=== PATIENT | female | born 1985 | race African-American/Black ===

== ENCOUNTER 2016-10-18 10:27 | Emergency (ER) | payer OTHER ==
[~2016-10-18] VITALS: Ht 170.2 cm; Wt 102.5 kg
[~2016-10-18 10:27] MED LIST: DOCU-144 PO; FER325 PO; RTPRO5
[2016-10-18 10:32] VITALS: Ht 170.2 cm; Wt 102.5 kg
[2016-10-18 11:51] LABS: ADD SCAN DIFF NO
[2016-10-18 11:52] LABS: ABNORMAL IP MESSAGE 1; HEMATOCRIT 19.1 % (37.0-47.0); MEAN CORPUSCULAR HEMOGLOBIN 18.5 pg (29.0-33.0); MEAN CORPUSCULAR HGB CONC 26.7 g/dl (32.0-37.0); MEAN CORPUSCULAR VOLUME 69.2 fl (82.0-101.0); MEAN PLATELET VOLUME 9.4 fl (7.4-10.4); PLATELET COUNT 529 10^3/UL (140-415); RED BLOOD COUNT 2.76 10^6/ul (4.20-5.40); RED CELL DISTRIBUTION WIDTH 24.3 % (11.5-14.5)
--- NOTE | 2016-10-18 12:01 | ERD ---
ER Documentation Chief Complaint Date/Time DATE: 10/18/16 TIME: 11:57 Chief Complaint Sent from for eval abnormal labs HPI This a 31-year-old female who presents the emergency department today for further evaluation after being sent by her primary care doctor for blood transfusion. States that she was called by her primary care doctor and had blood work a couple of days ago. Patient states that she has had one transfusion in the past approximately 1 year ago. Patient states that she does have heavy menstrual cycles and her menses are irregular. States that she saw an PROFILING MACHINE OPERATOR last time she was admitted to the hospital here and was told that she should have a hysterectomy. Patient states she did not want to do this however she did indicate that she has had her tubes tied. States she sometimes feels dizziness. States she is currently on her menstrual cycle. Denies any hematemesis, melanotic stools. ROS All systems reviewed and are negative except as per history of present illness. Medications Home Meds Discontinued Reported Medications Albuterol Sulfate* (Proventil* Neb) 0.5 Ml Nebu 12/02/09 Discontinued Scripts Docusate Sodium* (Colace*) 100 Mg Capsule, 100 MG PO BID, #60 CAP Prov:ABE CORBETT M. 11/06/15 Ferrous Sulfate* (Ferrous Sulfate*) 325 Mg Tabec, 325 MG PO TID, #90 TAB Prov:ABE CORBETT. 11/06/15 Allergies Allergies: Coded Allergies: No Known Drug Allergy (Verified Allergy, Unknown, 10/18/16) PMhx/Soc History of Surgery: Yes (6 C-SECTIONS, Tubal ligation ) Anesthesia Reaction: No Hx Neurological Disorder: No Hx Respiratory Disorders: Yes (ASTHMA) Hx Cardiac Disorders: No Hx Psychiatric Problems: No Hx Miscellaneous Medical Probl: Yes (anemia) Hx Alcohol Use: No Hx Substance Use: No Hx Tobacco Use: No Smoking Status: Never smoker Physical Exam Vitals Vital Signs Date Time Temp Pulse Resp B/P Pulse Ox O2 Delivery O2 Flow Rate FiO2 10/18/16 10:32 98.4 76 20 121/58 100 Physical Exam Const: Obese, no acute distress Head: Atraumatic Eyes: Normal Conjunctiva ENT: Normal External Ears, Nose and Mouth. Neck: Full range of motion..~ No meningismus. Resp: Clear to auscultation bilaterally Cardio: Regular rate and rhythm, no murmurs Abd: Soft, non tender, non distended. Normal bowel sounds Skin: No petechiae or rashes Back: No midline or flank tenderness Ext: No cyanosis, or edema Neur: Awake and alert Psych: Normal Mood and Affect Result Diagram: 10/18/16 1130 10/18/16 1130 Results 24 hrs Laboratory Tests Test 10/18/16 11:30 10/18/16 13:21 White Blood Count 4.810^3/ul Red Blood Count 2.7610^6/ul Hemoglobin 5.1g/dl Hematocrit 19.1% Mean Corpuscular Volume 69.2fl Mean Corpuscular Hemoglobin 18.5pg Mean Corpuscular Hemoglobin Concent 26.7g/dl Red Cell Distribution Width 24.3% Platelet Count 97340^3/UL Mean Platelet Volume 9.4fl Neutrophils % 71.0% Lymphocytes % 25.0% Monocytes % 3.0% Eosinophils % 1.0% Neutrophils # 3.410^3/ul Lymphocytes # 1.210^3/ul Monocytes # 0.110^3/ul Eosinophils # 0.010^3/ul Sodium Level 141mmol/L Potassium Level 3.9mmol/L Chloride Level 105mmol/L Carbon Dioxide Level 26mmol/L Anion Gap 14 Blood Urea Nitrogen 12mg/dl Creatinine 0.62mg/dl Glucose Level 104mg/dl Calcium Level 9.7mg/dl Total Bilirubin 0.1mg/dl Direct Bilirubin 0.00mg/dl Indirect Bilirubin 0.1mg/dl Aspartate Amino Transf (AST/SGOT) 16IU/L Alanine Aminotransferase (ALT/SGPT) 25IU/L Alkaline Phosphatase 62IU/L Total Protein 8.1g/dl Albumin 4.8g/dl Globulin 3.30g/dl Albumin/Globulin Ratio 1.45 Bedside Urine pH (LAB) 6.0 Bedside Urine Protein (LAB) 1+ Bedside Urine Glucose (UA) Negative Bedside Urine Ketones (LAB) Negative Bedside Urine Blood 3+ Bedside Urine Nitrite (LAB) Negative Bedside Urine Leukocyte Esterase (L Negative Current Medications Medications (Trade) Dose Ordered Sig/Allie Route PRN Reason Start Time Stop Time Status Last Admin Dose Admin Sodium Chloride (NS) 250 ml @ 0 mls/hr Q0M ONCE IV 10/18/16 12:29 10/18/16 12:31 DC Ondansetron HCl (Zofran Inj) 4 mg BRIDGE ORDER PRN IV NAUSEA AND/OR VOMITING 10/18/16 13:00 10/19/16 12:59 Acetaminophen (Tylenol Tab) 650 mg ER BRIDGE PRN PO MILD PAIN/FEVER 10/18/16 13:00 10/19/16 12:59 IV Flush (NS 3 ml) 3 ml PER PROTOCOL IV 10/18/16 14:00 Acetaminophen (Tylenol Tab) 650 mg Q6H PRN PO PAIN LEVEL 1-3 OR FEVER 10/18/16 14:00 Acetaminophen/ Hydrocodone Bitart ([place] (5/325)) 1 tab Q6H PRN PO MODERATE PAIN LEVEL 4-6 10/18/16 14:00 DIAGNOSTIC IMAGING REPORT Patient: WHITNEY ZARATE : 1985 Age: 31 Sex: F MR #: [id number] DOS: 10/18/16 0000 Ordering MD: ATUL NAVA PA-C Location: E/R Room/Bed: PROCEDURE: US Pelvis CLINICAL INDICATION: Vaginal bleeding TECHNIQUE: Sonographic evaluation of the pelvis was performed utilizing both transabdominal and transvaginal technique. Curved array transabdominal transducer technique as well as a high frequency endovaginal probe was utilized. Images were reviewed on the high-resolution PACS workstation. COMPARISON: Pelvic ultrasound dated 11/05/2015 FINDINGS: The uterus is normal in size, echogenicity, and morphology measuring 10.9 x 6.0 x 4.5 cm in dimension. The uterus is anteverted in normal position. The endometrium is normal for a menstrual age female measuring 8.1 mm in diameter. The normal trilaminar stripe of the endometrium is preserved. The right ovary measures 4.7 x 2.5 x 3.0 cm in dimension. The left ovary measures 3.8 x 2.0 x 2.3 cm in dimension. The ovaries are symmetric in size, echogenicity, and morphology. Normal Doppler flow is demonstrated to both ovaries. There are no adnexal masses. There is no significant free fluid in the pelvis. IMPRESSION: Unremarkable ultrasound of the pelvis. RPTAT: .Nemo Thurman MD, Date Time Electronically viewed and signed by .Nemo Thurman MD, on 10/18/2016 14 :05 .G/ CC: ATUL NAVA PA-C Procedures/MDM This a 31-year-old female who presents to the emergency department today for further evaluation after being sent by her primary care doctor, Dr Deo Sarah, for a blood transfusion. Patient has had one in the past. Patient endorsed having irregular menstrual cycles and sometimes long and heavy prolonged cycles. I did repeat laboratory work today given that patient does not have any paperwork with her. Laboratory workup shows a hemoglobin of 5.1. Her platelets are elevated. There is no elevated white blood cell count. UA is negative for infection. 3+ blood is present. Patient currently on her menstrual cycle peer test is negative Ultrasound was unremarkable. The normal try laminar stripe of the endometrium is preserved. There is no significant free fluid in the pelvis. There are no adnexal masses. There is normal Doppler flow to both ovaries. Patient symptoms at this time is consistent with anemia that appears to be microcytic and possibly due to dysfunctional uterine bleeding. A call to Dr Ngo was placed. Any further orders placed will be placed by Dr. Gonzáles, or the admitting physician. Departure Diagnosis: Primary Impression: Anemia Anemia type: unspecified type Qualified Code: D64.9 - Anemia, unspecified type Condition: Fair ATUL NAVA PA-C Oct 18, 2016 12:01
[2016-10-18 12:11] LABS: ALBUMIN 4.8 g/dl (3.3-4.9); ALBUMIN/GLOBULIN RATIO 1.45; BILIRUBIN,INDIRECT 0.1 mg/dl (0-1.1); BILIRUBIN,TOTAL 0.1 mg/dl (0.2-1.3); CALCIUM 9.7 mg/dl (8.4-10.2); CREATININE 0.62 mg/dl (0.44-1.00); POTASSIUM 3.9 mmol/L (3.5-5.1); TOTAL PROTEIN 8.1 g/dl (6.1-8.1)
[2016-10-18 12:18] LABS: HEMOGLOBIN 5.1 g/dl (12.0-16.0)
[2016-10-18] MEDS ORDERED: SOD CHLORIDE 0.9% 250 ML IV ONE (12:29)
--- NOTE | 2016-10-18 12:38 | QN ---
Documentation Comment I have seen and evaluated the patient along with the PA and/or LAWN AND GARDEN TECHNICIAN provider. I agree with the evaluation and plan of care. Please see their documentation for full ER course and evaluation. In short: Patient sent to the emergency room for symptomatic anemia On exam: General: Well developed, well nourished, no acute distress, pallor noted Head: Normocephalic, atraumatic Eyes: Pupils equally reactive, EOM intact ENT: Moist mucous membranes Neck: Supple, no lymphadenopathy Respiratory: Lungs clear bilaterally, no distress Cardiovascular: RRR, no murmurs, rubs, or gallops Abdominal: Soft, non-tender, non-distended, no peritoneal signs : Deferred MSK: No edema, no unilateral swelling, 5/5 strength Neurologic: Alert and oriented, moving all extremities, normal speech, no focal weakness, no cerebellar signs Skin: No rash Psych: Normal mood Assessment and plan: Patient is a hemoglobin of 5.1. 2 units packed red blood cells ordered. Patient has a history of menorrhagia which is the likely etiology. Based on the patient's clinical presentation, physical exam and laboratory testing, I believe that a blood transfusion would be most appropriate. I believe the benefits outweigh the risks. I had a prolonged conversation regarding informed consent of a blood transfusion with the patient and/or family. We discussed the risks, benefits, alternatives of blood transfusion. There was verbalized understanding. A documented consent was signed and placed in the patient's chart. Patient will be admitted for further workup and treatment of symptomatically anemia Accepting care team and consultations: I discussed the current laboratory data, diagnostic imaging and emergency care provided. Admitting team: Dr. Rousseau Admitting team indication: Insurance directed ROM BHANDARI MD Oct 18, 2016 12:38
[2016-10-18] MEDS ORDERED: ACETAMINOPHEN 325 MG TAB PO PRN ×2 (13:00→14:00)
[2016-10-18] MEDS ORDERED: ONDANSETRON 4 MG INJ IV PRN (13:00)
[2016-10-18 13:16] LABS: URINE BLOOD (Dip) POC 3+ (NEGATIVE)
[2016-10-18 13:49] LABS: LYMPHOCYTES # 1.2 10^3/ul (0.8-2.9); MONOCYTE # 0.1 10^3/ul (0.3-0.9); NEUTROPHIL # 3.4 10^3/ul (1.6-7.5)
--- NOTE | 2016-10-18 13:56 | HP ---
Date/Time of Note Date/Time of Note DATE: 10/18/16 TIME: 13:56 Assessment/Plan VTE Prophylaxis VTE Prophylaxis Intervention: SCD's Assessment/Plan Assessment/Plan 31 yo F presents with anemia 2/2 abnormal uterine bleeding PLAN transfuse pRBCs dent remover eval check TSH discharge home when cleared by dent remover HPI/ROS Admit Date/Time Admit Date/Time Hx of Present Illness 31 yo F with pmhx asthma, dysfunctional uterine bleeding presents with anemia. Pt admitted for DUB last year and has not yet followed up with dent remover. Denies any SOB but reports chronic fatigue. Had "routine" blood work done earlier this week with PCP. Hgb found to be 5 and pt advised to present to the ED for further eval. Pt affirms same hx she gave last year-->that her menstrual periods last 10 days and she goes through on average 24 pads per cycle. PMH/Family/Social Social History lives in the community, mom to 6 children Smoking Status: Never smoker Exam/Review of Systems Vital Signs Vitals Vital Signs Date Time Temp Pulse Resp B/P Pulse Ox O2 Delivery O2 Flow Rate FiO2 10/18/16 10:32 98.4 76 20 121/58 100 Exam Exam nad, laying in bed, pleasant EOMI MMM no mrg lungs clear abd soft, obese no le edema no rashes pevic US results unremarkable hgb 5s Labs Result Diagram: 10/18/16 1130 10/18/16 1130 HUSSAIN DE LA ROSA MD Oct 18, 2016 13:56
[2016-10-18] MEDS ORDERED: HYDROCODONE/APAP (5/325) TAB PO PRN (14:00)
[2016-10-18] MEDS ORDERED: NACL 0.9% 3 ML SYG IV SCH (14:00)
--- NOTE | 2016-10-18 14:05 | RADRPT ---
PROCEDURE: US Pelvis CLINICAL INDICATION: Vaginal bleeding TECHNIQUE: Sonographic evaluation of the pelvis was performed utilizing both transabdominal and tr ansvaginal technique. Curved array transabdominal transducer technique as well as a high frequency endovaginal probe was utilized. Images were reviewed on the high-resolution PACS workstation. COMPARISON: Pelvic ultrasound dated 11/05/2015 FINDINGS: The uterus is normal in size, echogenicity, and morphology measuring 10.9 x 6.0 x 4.5 cm in dimensio n. The uterus is anteverted in normal position. The endometrium is normal for a menstrual age fem jimmy measuring 8.1 mm in diameter. The normal trilaminar stripe of the endometrium is preserved. The right ovary measures 4.7 x 2.5 x 3.0 cm in dimension. The left ovary measures 3.8 x 2.0 x 2.3 c m in dimension. The ovaries are symmetric in size, echogenicity, and morphology. Normal Doppler fl ow is demonstrated to both ovaries. There are no adnexal masses. There is no significant free flui d in the pelvis. IMPRESSION: Unremarkable ultrasound of the pelvis. RPTAT: HH .Nemo Thurman MD, Date Time Electronically viewed and signed by .Nemo Thurman MD, MD on 10/18/2016 14:05 .Ludy/
--- NOTE | 2016-10-18 14:12 | QN ---
Documentation Comment OBGYN pt with H/o of chronic menorrhagia vss exam wnl a/p chronic menorrhagia with anemia transfuse PRBC provera 10 BID instructed pt will need WINTER with OBGYN on DC home and likely would benefit from EMB/endometrial ablation will follow DANIELLE MELENDEZ MD Oct 18, 2016 14:12
[2016-10-18] MEDS ORDERED: MEDROXYPROGESTERONE 10 MG TAB PO SCH (21:00)
[2016-10-18 21:01] VITALS: BP 118/82; PULSE 78; RESP 18; TEMP 98.7
[2016-10-19 08:56] LABS: WHITE BLOOD COUNT 4.8 10^3/ul (4.8-10.8)
--- NOTE | 2016-10-19 09:02 | DS ---
Date/Time of Note Date/Time of Note DATE: 10/19/16 TIME: 09:01 Discharge Summary Admission/Discharge Info Admit Date/Time Discharge Date/Time Patient Condition: Guarded Consults bordereau clerk Hx of Present Illness 31 yo F with pmhx asthma, dysfunctional uterine bleeding presents with anemia. Pt admitted for DUB last year and has not yet followed up with bordereau clerk. Denies any SOB but reports chronic fatigue. Had "routine" blood work done earlier this week with PCP. Hgb found to be 5 and pt advised to present to the ED for further eval. Pt affirms same hx she gave last year-->that her menstrual periods last 10 days and she goes through on average 24 pads per cycle. Hospital Course Pt appeared to have left the ER at 9pm after her blood transfusion. Paraeducator was not informed of patient's departure. No documentation from the ER regarding the nature of this discharge. Home Meds Discontinued Reported Medications Albuterol Sulfate* (Proventil* Neb) 0.5 Ml Nebu 12/02/09 Discontinued Scripts Docusate Sodium* (Colace*) 100 Mg Capsule, 100 MG PO BID, #60 CAP Prov:ABE CORBETT 11/06/15 Ferrous Sulfate* (Ferrous Sulfate*) 325 Mg Tabec, 325 MG PO TID, #90 TAB Prov:ABE CORBETT 11/06/15 Primary Care Provider Pending Labs Laboratory Tests Test 10/18/16 11:30 10/18/16 11:35 10/18/16 13:21 White Blood Count 4.810^3/ul (4.8-10.8) Red Blood Count 2.7610^6/ul (4.20-5.40) Hemoglobin 5.1g/dl (12.0-16.0) Hematocrit 19.1% (37.0-47.0) Mean Corpuscular Volume 69.2fl (82.0-101.0) Mean Corpuscular Hemoglobin 18.5pg (29.0-33.0) Mean Corpuscular Hemoglobin Concent 26.7g/dl (32.0-37.0) Red Cell Distribution Width 24.3% (11.5-14.5) Platelet Count 86010^3/UL (140-415) Mean Platelet Volume 9.4fl (7.4-10.4) Neutrophils % 71.0% (39.0-77.0) Lymphocytes % 25.0% (15.0-51.0) Monocytes % 3.0% (0.0-11.0) Eosinophils % 1.0% (0.0-7.0) Neutrophils # 3.410^3/ul (1.6-7.5) Lymphocytes # 1.210^3/ul (0.8-2.9) Monocytes # 0.110^3/ul (0.3-0.9) Eosinophils # 0.010^3/ul (0.0-0.5) Sodium Level 141mmol/L (135-144) Potassium Level 3.9mmol/L (3.5-5.1) Chloride Level 105mmol/L (97-110) Carbon Dioxide Level 26mmol/L (21-31) Anion Gap 14 (8-16) Blood Urea Nitrogen 12mg/dl (7-20) Creatinine 0.62mg/dl (0.44-1.00) Glucose Level 104mg/dl (70-220) Calcium Level 9.7mg/dl (8.4-10.2) Total Bilirubin 0.1mg/dl (0.2-1.3) Direct Bilirubin 0.00mg/dl (0.00-0.20) Indirect Bilirubin 0.1mg/dl (0-1.1) Aspartate Amino Transf (AST/SGOT) 16IU/L (15-46) Alanine Aminotransferase (ALT/SGPT) 25IU/L (13-69) Alkaline Phosphatase 62IU/L (42-121) Total Protein 8.1g/dl (6.1-8.1) Albumin 4.8g/dl (3.3-4.9) Globulin 3.30g/dl (1.3-3.2) Albumin/Globulin Ratio 1.45 Thyroid Stimulating Hormone (TSH) 1.040MIU/L (0.465-4.680) Bedside Urine pH (LAB) 6.0 (5.0-8.5) Bedside Urine Protein (LAB) 1+ (NEGATIVE) Bedside Urine Glucose (UA) Negative (NEGATIVE) Bedside Urine Ketones (LAB) Negative (NEGATIVE) Bedside Urine Blood 3+ (NEGATIVE) Bedside Urine Nitrite (LAB) Negative (NEGATIVE) Bedside Urine Leukocyte Esterase (L Negative (NEGATIVE) STOLAR,HUSSAIN MD Oct 19, 2016 09:02
== END 2016-10-18 21:19 | disposition home or self-care (01) ==
LOC: FTE 10:27 → E/R 21:19
DX: D64.9 Anemia, unspecified (principal); J45.909 Unspecified asthma, uncomplicated
CPT/HCPCS: 36430; 76856; 80053; 81003; 84443; 85025; 86850; 86900; 86901; 86920; J7040; P9016

== ENCOUNTER 2017-02-16 18:29 | Emergency (ER) | payer OTHER ==
[~2017-02-16] VITALS: Ht 170.2 cm; Wt 102.5 kg
[2017-02-16 18:32] VITALS: Ht 170.2 cm; Wt 102.5 kg
[2017-02-16] MEDS ORDERED: KETOROLAC 15 MG INJ IM STA (19:08)
--- NOTE | 2017-02-16 19:08 | ERD ---
ER Documentation Chief Complaint Chief Complaint left shoulder pain x 2 days, denies in jury HPI This 31-year-old female presents to emergency department for evaluation of acute onset of left shoulder pain left scapular pain. denies injury, pt reports that she was sitting watching TV when pain started pain is 8/10 described as sharp and intermitted ROS All systems reviewed and are negative except as per history of present illness. Medications Home Meds Active Scripts Naproxen* (Naprosyn*) 500 Mg Tablet, 500 MG PO BID Y for PAIN AND/OR INFLAMMATION, #20 TAB Prov:TAMAR LERMA 02/16/17 Allergies Allergies: Coded Allergies: No Known Drug Allergy (Verified Allergy, Unknown, 10/18/16) PMhx/Soc History of Surgery: Yes (6 C-SECTIONS, Tubal ligation ) Anesthesia Reaction: No Hx Neurological Disorder: No Hx Respiratory Disorders: Yes (ASTHMA) Hx Cardiac Disorders: No Hx Psychiatric Problems: No Hx Miscellaneous Medical Probl: Yes (anemia) Hx Alcohol Use: No Hx Substance Use: No Hx Tobacco Use: No Physical Exam Vitals Vital Signs Date Time Temp Pulse Resp B/P Pulse Ox O2 Delivery O2 Flow Rate FiO2 02/16/17 18:32 99.3 77 20 137/62 100 Vitals stable, triage notes reviewed Physical Exam Const: Obese well-nourished well-hydrated well-appearing 31-year-old female in no acute distress Head: Eyes: ENT: Neck: Resp: Cardio: Abd: Skin: No petechiae or rashes Back: Ext: Upper Extremity -left shoulder: Skin: No laceration, or evidence of external trauma, deformity asymmetry compared to right shoulder Compartments: Soft no axillary tenderness Motor: Full active range of motion shoulder/elbow/wrist/ hand, pain with internal and external rotation bilateral hand end trimmer strong and equal, no pain with, empty can test if equivocal Sensation: intact shoulder/pinky/middle finger/thumb web space Bones: Nontender humerus/elbow/forearm/wrist/hand, palpable scapular and parascapular tenderness, deltoid tenderness,, Snuffbox: Nontender Joints: No effusion Pulses/Perfusion: 2+ radial, Capillary refill < 2 seconds Neur: Awake and alert Psych: Normal Mood and Affect Results 24 hrs Current Medications Medications (Trade) Dose Ordered Sig/Allie Route PRN Reason Start Time Stop Time Status Last Admin Dose Admin Ketorolac Tromethamine (Toradol) 15 mg ONCE STAT IM 02/16/17 19:08 02/16/17 19:11 DC 02/16/17 19:55 Diazepam (Valium) 5 mg ONCE ONCE PO 02/16/17 19:30 02/16/17 19:31 DC 02/16/17 19:55 Procedures/MDM PROCEDURE: XR Left Shoulder. CLINICAL INDICATION: Left shoulder pain TECHNIQUE: 3 views of the left shoulder are available for review. COMPARISON: None available FINDINGS: There is no acute fracture. Alignment is normal. Joint spaces are preserved. Soft tissues are grossly unremarkable. IMPRESSION: 1. No radiographic evidence of acute osseous abnormality of the left shoulder. Electronically viewed and signed by .Kiran Lowry MD, on 02/16/2017 20:26 This 31-year-old female presents to emergency department with acute onset of left shoulder pain, reports she was sitting watching TV yesterday when pain started, denies any pre-existing injury, denies any remote trauma. Patient reports pain is intermittent and sharp, aggravated by movement. Hand end trimmer are equal. Emergency room course includes history and physical exam, with a working differential of frozen shoulder, AC separation, rotator cuff tear, bursitis, tendinitis. A left shoulder x-ray ordered, pain control with Naprosyn 500 mg, a sling was offered, patient prefers to wait on sling states pain is worse with movement. X-ray interpretation by radiologist no radiographic evidence of acute osseous abnormality of the left shoulder. There is no fracture, alignment is normal, joint spaces are well-preserved, soft tissues are grossly unremarkable. Plan to place patient in sling, discharged home with Naprosyn 500 mg 1 tab p.o. twice daily 10 days, follow-up with [facility] for referral to orthopedics if symptoms fail to improve with conservative treatment after 7-10 days. Rice therapy recommended rest, ice, shoulder sling and elevation. Patient is stable with no new complaints during ER course, clinically there is no current evidence to suggest cervical sprain, neurovascular compromise, anterior shoulder dislocation, posterior shoulder dislocation or any other emergent condition appearing to require further evaluation or hospitalization. I feel the patient is stable for discharge at this time. I have discussed results, examination findings, the treatment plan with the patient and family present prior to discharge. Indications for emergent reevaluation, side effects of medication were also discussed. All questions were answered. Patient verbalizes understanding and agrees with plan of care. Departure Diagnosis: Primary Impression: Shoulder pain Chronicity: acute Laterality: left Qualified Code: M25.512 - Acute pain of left shoulder Condition: Good Patient Instructions: Shoulder Pain (Uncertain Cause) Referrals: [facility] Additional Instructions: Thank you for for coming to [facility] for your care today. Please ask your nurse or provider if you have questions about your care today and do not leave until all your questions have been answered. Please use any medications given as directed and follow-up with your doctor (or the doctor you were referred to) in the next 2-3 days. If you do not have a primary care doctor [place] [facility] [place] You may also use motrin and tylenol as needed for fever and/or pain unless instructed otherwise by your provider or nurse. Indications for more urgent follow-up have been discussed, but you may return to the Emergency Department at ANY time for any worrisome or worsening symptoms. If you have abdominal pain, please know that no test or exam you received is perfect and you should follow up within 8 hours for continued pain. If you had any imaging studies today, such as an X-Ray or CT Scan, these studies will be reviewed later by a radiologist. You will be called if there are important findings that were not identified today, so make sure the contact information you provided at registration is correct. If you received any narcotic pain control medicine today, such as Vicodin, Morphine or Dilaudid, your coordination and judgment may be affected for a number of hours. Please do not drive or operate heavy machinery, and you may want someone to assist you at home. If you were given a prescription for narcotic medication, be aware that it is very addictive- use sparingly and only if necessary. TAMAR LERMA Feb 16, 2017 19:08
[2017-02-16] MEDS ORDERED: DIAZEPAM 5 MG TAB PO ONE (19:30)
--- NOTE | 2017-02-16 20:27 | RADRPT ---
PROCEDURE: XR Left Shoulder. CLINICAL INDICATION: Left shoulder pain TECHNIQUE: 3 views of the left shoulder are available for review. COMPARISON: None available FINDINGS: There is no acute fracture. Alignment is normal. Joint spaces are preserved. Soft tissues are grossly unremarkable. IMPRESSION: 1. No radiographic evidence of acute osseous abnormality of the left shoulder. RPTAT: UU .iKran Lowry MD, MD Date Time Electronically viewed and signed by .Kiran Lowry MD, on 02/16/2017 20:26 .K/
[2017-02-16] MEDS ORDERED: NAPR-260 PO (20:39)
== END 2017-02-16 20:43 | disposition home or self-care (01) ==
LOC: FTE 18:29
DX: M25.512 Pain in left shoulder (principal); J45.909 Unspecified asthma, uncomplicated
CPT/HCPCS: 73030; 96372; 99284; J1885

== ENCOUNTER 2017-06-18 09:10 | Emergency (ER) | END 2017-06-18 11:45 | disposition home or self-care (01) ==

== ENCOUNTER 2017-07-16 00:53 | Observation (INO) | END 2017-07-17 20:19 | disposition home or self-care (01) ==

== ENCOUNTER 2018-12-19 22:44 | Observation (INO) | payer OTHER ==
[~2018-12-19] VITALS: Ht 170.2 cm; Wt 112.8 kg
[~2018-12-19 22:44] MED LIST changes: +ALBU90AE INHALATION; -DOCU-144 PO; -FER325 PO; +FERR256T PO; -RTPRO5
[2018-12-19 22:54] VITALS: Ht 170.2 cm; Wt 112.8 kg
[2018-12-20] MEDS ORDERED: NON-FORMULARY/PATIENT OWN MED (Albuterol Sulfate (Proair Respiclick) 2 PUFFS) INHALATION PRN (02:30)
[2018-12-20] MEDS ORDERED: ACETAMINOPHEN 325 MG TAB PO PRN (02:30)
[2018-12-20] MEDS ORDERED: NACL 0.9% 3 ML SYG IV SCH (02:30)
[2018-12-20] MEDS ORDERED: ONDANSETRON 4 MG TAB PO PRN (02:30)
[2018-12-20 05:47] VITALS: BP 117/62; PULSE 71; RESP 20
[2018-12-20 08:00] VITALS: BP 134/65; PULSE 67; RESP 16
[2018-12-20] MEDS ORDERED: FAMOTIDINE 20 MG TAB PO SCH (09:00)
[2018-12-20 14:00] VITALS: BP 117/72; PULSE 63; RESP 16
[2018-12-20 19:57] VITALS: BP 128/59; PULSE 64; RESP 18
== END 2018-12-20 20:27 | disposition home or self-care (01) ==
LOC: E/R 22:44 → PP2 12-20 02:10
PROVIDERS: ADMIT Internal Medicine; ATTEND Internal Medicine
DX: D25.9 Leiomyoma of uterus, unspecified (principal); D64.9 Anemia, unspecified; J45.909 Unspecified asthma, uncomplicated
CPT/HCPCS: 36415; 36430; 76830; 76856; 80048; 80053; 84436; 84479; 84702; 85014; 85018; 85025; 85610; 85730; 86850; 86900; 86901; 86920; 93005; G0378; P9016